=== PATIENT | female | born 1995 | race African-American/Black ===

== ENCOUNTER 2016-11-10 10:10 | Emergency (ER) | payer OTHER ==
[~2016-11-10] VITALS: Ht 162.6 cm; Wt 60.5 kg
[~2016-11-10 10:10] MED LIST: ACET50TA PO; IBUP80TA PO
[2016-11-10 10:53] LABS: CONTROL LINE UCG INT CTR LINE PRESENT
[2016-11-10 11:00] LABS: BASO # 0.1 K/mm3 (0.0-0.2); BASO % 1.1 % (0.0-1.0); EOS # 0.2 K/mm3 (0.0-0.50); EOS % 2.6 % (0.0-3.0); LARGE UNSTAINED CELL # 0.2 K/mm3 (0.0-0.4); LARGE UNSTAINED CELL % 1.8 % (0.0-4.0); LYMPH # 2.4 K/mm3 (1.5-6.5); LYMPH % 26.9 % (24.0-44.0); MEAN CORPUSCULAR HEMOGLOBIN 31.2 pg (27.0-33.0); MEAN CORPUSCULAR HGB CONC 33.7 g/dl (32.0-36.5); MEAN CORPUSCULAR VOLUME 92.7 fl (80.0-96.0); MONO # 0.3 K/mm3 (0.0-0.8); MONO % 3.7 % (0.0-5.0); NEUTROPHILS # 5.7 K/mm3 (1.8-7.7); NEUTROPHILS % 63.8 % (36.0-66.0); PLATELET COUNT, AUTOMATED 321 k/mm3 (150-450); RED CELL DISTRIBUTION WIDTH 12.5 % (11.5-14.5); WHITE BLOOD COUNT 8.9 K/mm3 (4.0-10.0)
[2016-11-10 11:17] LABS: ANION GAP 5 MEQ/L (8-16); BLOOD UREA NITROGEN 11 MG/DL (7-18); CALCIUM LEVEL 9.5 MG/DL (8.5-10.1); CARBON DIOXIDE LEVEL 28 MEQ/L (21-32); CHLORIDE LEVEL 106 MEQ/L (98-107); CREATININE FOR GFR 0.82 MG/DL (0.55-1.02); GLOMERULAR FILTRATION RATE > 60.0 (>60); GLUCOSE, FASTING 86 MG/DL (70-105); SODIUM LEVEL 139 MEQ/L (136-145)
[2016-11-10 11:32] VITALS: BP 101/58
== END 2016-11-10 11:30 | disposition home or self-care (01) ==
LOC: M ED 10:10
DX: N92.0 Excessive and frequent menstruation with regular cycle (principal); N39.0 Urinary tract infection, site not specified; B95.1 Streptococcus, group B, as the cause of diseases classified elsewhere; Z79.3 Long term (current) use of hormonal contraceptives

== ENCOUNTER → 2016-11-25 | Outpatient (REF) ==
[~2016-11-25] MED LIST changes: +DIFL200T PO
== END ==
LOC: M LAB 10:51
PROVIDERS: ATTEND Nurse Practitioner Adult Health
DX: Z02.89 Encounter for other administrative examinations (principal)

== ENCOUNTER 2017-01-17 08:58 | Emergency (ER) | payer OTHER ==
[~2017-01-17] VITALS: Ht 160 cm; Wt 65.9 kg
[~2017-01-17 08:58] MED LIST changes: -DIFL200T PO
[2017-01-17] MEDS ORDERED: FLUCONAZOLE 100 MG TAB PO ONE (11:00)
[2017-01-17] MEDS ORDERED: DIFL200T PO (11:00)
[2017-01-17 11:06] VITALS: BP 132/67
== END 2017-01-17 11:08 | disposition home or self-care (01) ==
LOC: M ED 08:58
DX: J02.9 Acute pharyngitis, unspecified (principal); B37.3 Candidiasis of vulva and vagina

== ENCOUNTER → 2017-02-05 | Outpatient (CLI) | payer OTHER ==
[~2017-02-05] MED LIST changes: +DIFL200T PO
== END ==
LOC: M WUC 16:51
PROVIDERS: ATTEND Physician Assistant
DX: N91.1 Secondary amenorrhea (principal)

== ENCOUNTER → 2017-02-09 | Outpatient (CLI) | payer OTHER | LOC: M LAB 14:17 | PROVIDERS: ATTEND Advanced Practice Midwife | DX: O20.0 Threatened abortion (principal) ==

== ENCOUNTER → 2017-02-11 | Outpatient (CLI) | payer OTHER | LOC: M LAB 13:52 | PROVIDERS: ATTEND Advanced Practice Midwife | DX: O20.0 Threatened abortion (principal) ==

== ENCOUNTER 2017-03-27 13:19 | Emergency (ER) | payer OTHER ==
[~2017-03-27] VITALS: Ht 162.6 cm; Wt 63.8 kg
[2017-03-27 17:01] LABS: BASO % 0.3 % (0.0-1.0); EOS # 0.2 10^3/uL (0.0-0.50); EOS % 1.7 % (0.0-3.0); IMMATURE GRANULOCYTE % 0.4 % (0-0); LYMPH # 2.4 10^3/uL (1.5-6.5); LYMPH % 23.4 % (24.0-44.0); MEAN CORPUSCULAR HEMOGLOBIN 31.2 pg (27.0-33.0); MEAN CORPUSCULAR HGB CONC 34.7 g/dl (32.0-36.5); MEAN CORPUSCULAR VOLUME 89.9 fl (80.0-96.0); MONO # 0.7 10^3/uL (0.0-0.8); MONO % 6.6 % (0.0-5.0); NEUTROPHILS # 6.9 10^3/uL (1.8-7.7); NEUTROPHILS % 67.6 % (36.0-66.0); PLATELET COUNT, AUTOMATED 316 10^3/uL (150-450); RED CELL DISTRIBUTION WIDTH 13.1 % (11.5-14.5); WHITE BLOOD COUNT 10.3 10^3/uL (4.0-10.0)
[2017-03-27 17:45] LABS: ALBUMIN 3.8 GM/DL (3.2-5.2); ALBUMIN/GLOBULIN RATIO 0.93 (1.00-1.93); ALKALINE PHOSPHATASE 19 U/L (45-117); ALT/SGPT 16 U/L (12-78); ANION GAP 7 MEQ/L (8-16); AST/SGOT 13 U/L (7-37); BILIRUBIN,DIRECT 0.3 MG/DL (0.0-0.2); BILIRUBIN,TOTAL 1.1 MG/DL (0.2-1.0); BLOOD UREA NITROGEN 5 MG/DL (7-18); CALCIUM LEVEL 8.9 MG/DL (8.5-10.1); CARBON DIOXIDE LEVEL 25 MEQ/L (21-32); CHLORIDE LEVEL 105 MEQ/L (98-107); CREATININE FOR GFR 0.63 MG/DL (0.55-1.02); GLOMERULAR FILTRATION RATE > 60.0 (>60); GLUCOSE, FASTING 77 MG/DL (70-105); HCG, SERUM QUANTITATIVE 49993 MIU/ML; SODIUM LEVEL 137 MEQ/L (136-145); TOTAL PROTEIN 7.9 GM/DL (6.4-8.2)
[2017-03-27 18:32] VITALS: BP 118/65
--- NOTE | 2017-03-27 18:33 | REP ---
FIRST TRIMESTER ULTRASOUND: HISTORY: Pelvic pain. A single intrauterine is present. [place] rump length is 0.6 cm corresponding to a gestational age of 6 weeks three days. heart rate is 127 beats per minute. There is no subchorionic hemorrhage. A right ovarian cyst consistent with a corpus luteal cyst is present. This measures 2 cm in maximum dimension. There is no fluid in the cul-de-sac. Estimated date of delivery is 11/17/2017. IMPRESSION:A single intrauterine is present with a gestational age of 6 weeks three days. A repeat examination in 19-20 weeks is recommended for further evaluation. Signed by Darin Jane MD 03/27/2017 06:55 P
== END 2017-03-27 18:33 | disposition home or self-care (01) ==
LOC: M ED 13:19
DX: O26.891 Other specified pregnancy related conditions, first trimester (principal); M54.5 Low back pain; R35.0 Frequency of micturition; Z3A.01 Less than 8 weeks gestation of pregnancy